=== PATIENT | female | born 1960 | race Caucasian/White ===

== ENCOUNTER 2018-03-02 09:35 | Outpatient (CLI) | payer OTHER | END 2018-03-02 09:36 | disposition home or self-care (01) | LOC: BICULT 09:35 | PROVIDERS: ATTEND Internal Medicine Gastroenterology | DX: Z23 Encounter for immunization (principal); B18.2 Chronic viral hepatitis C; K74.60 Unspecified cirrhosis of liver; K59.09 Other constipation; K76.89 Other specified diseases of liver | CPT/HCPCS: 76705 ==

== ENCOUNTER 2021-12-29 10:59 | Inpatient (IN) | payer OTHER ==
[2021-12-29 11:53] LABS: #Lymphocytes 0.6 thou/uL (1.20-3.40); #Monocytes 0.1 thou/uL (0.11-0.59); #Neutrophils 6.8 thou/uL (1.40-6.50); %Eosinophils 0.1 % (0.0-10.0); %Lymphocytes 8.3 % (21.0-51.0); %Monocytes 0.9 % (0.0-10.0); %Neutrophils 90.7 % (42.0-75.0); Hemoglobin 14.3 g/dL (12.0-16.0); Mean Corpuscular HGB CONC 32.2 g/dL (32.0-36.0); Mean Corpuscular Hemoglobin 30.1 pg (27.0-31.0); Mean Corpuscular Volume 93.7 fL (78.0-98.0); Mean Platelet Volume 8.3 fL (7.4-10.4); Platelet Count 101 thou/uL (130-400); RBC Distribution Width 12.8 % (11.5-14.5); Red Blood Cell (RBC) Count 4.74 mill/uL (4.20-5.40); White Blood Cell (WBC) Count 7.5 thou/uL (4.8-10.8)
[2021-12-29 12:06] LABS: ALT (SGPT) 29 U/L (8-55); AST (SGOT) 42 U/L (5-34); Alkaline Phosphatase 85 U/L (40-110); Anion Gap 12 mmol/L (10-20); BUN (Urea Nitrogen) 20 mg/dL (9.8-20.1); Bilirubin, Total 0.6 mg/dL (0.2-1.2); Calc. Creatinine Clearance 0 mL/min (70-130); Calcium 8.5 mg/dL (7.8-10.44); Carbon Dioxide 25 mmol/L (23-31); Chloride 103 mmol/L (98-107); Glucose 196 mg/dL (80-115); Potassium 3.8 mmol/L (3.5-5.1); Sodium 136 mmol/L (136-145)
[2021-12-29] MEDS ORDERED: Enoxaparin Sodium 60 MG/0.6 ML SYRINGE ONE (12:23)
[2021-12-29 12:28] LABS: CKMB 4.8 ng/mL (0-6.6)
[2021-12-29 14:01] VITALS: BMI 22.6
[2021-12-29 15:19] LABS: Troponin I 0.124 ng/mL (< 0.028)
[2021-12-29] MEDS ORDERED: Senokot S 8.6-50 MG TAB PO PRN (15:55)
[2021-12-29] MEDS ORDERED: Ondansetron PF 4 MG/2 ML Vial IVP PRN (15:55)
[2021-12-29] MEDS ORDERED: Ondansetron ODT 4 MG TAB PO PRN (15:55)
[2021-12-29] MEDS ORDERED: Acetaminophen 325 MG TAB PO PRN (15:55)
[2021-12-29] MEDS ORDERED: Nicotine 14 MG PATCH TD PRN (15:55)
[2021-12-29] MEDS ORDERED: Metoprolol Tartrate 5 MG/5 ML VIAL IVP PRN (16:38)
[2021-12-29 18:11] LABS: INR-International Normal Ratio 1.1; Prothrombin Time 14.8 sec (12.0-14.7)
[2021-12-29 18:12] LABS: PTT 35.2 sec (22.9-36.1)
[2021-12-29 18:27] LABS: Troponin I 0.097 ng/mL (< 0.028)
[2021-12-29] MEDS: Enoxaparin Sodium 60 MG/0.6 ML SYRINGE SC SCH (20:41)
[2021-12-30 04:17] LABS: #Basophils 0.1 thou/uL (0.0-0.2); #Lymphocytes 1.3 thou/uL (1.20-3.40); #Monocytes 0.5 thou/uL (0.11-0.59); #Neutrophils 7.6 thou/uL (1.40-6.50); %Basophils 0.6 % (0.0-1.0); %Eosinophils 0.1 % (0.0-10.0); %Lymphocytes 13.7 % (21.0-51.0); %Monocytes 5.3 % (0.0-10.0); %Neutrophils 80.2 % (42.0-75.0); Hemoglobin 13.5 g/dL (12.0-16.0); Mean Corpuscular HGB CONC 33.9 g/dL (32.0-36.0); Mean Corpuscular Hemoglobin 31.7 pg (27.0-31.0); Mean Corpuscular Volume 93.4 fL (78.0-98.0); Mean Platelet Volume 8.4 fL (7.4-10.4); Platelet Count 112 thou/uL (130-400); RBC Distribution Width 12.9 % (11.5-14.5); Red Blood Cell (RBC) Count 4.27 mill/uL (4.20-5.40); White Blood Cell (WBC) Count 9.5 thou/uL (4.8-10.8)
[2021-12-30 04:41] LABS: ALT (SGPT) 24 U/L (8-55); AST (SGOT) 29 U/L (5-34); Albumin 3.9 g/dL (3.4-4.8); Alkaline Phosphatase 73 U/L (40-110); Anion Gap 13 mmol/L (10-20); BUN (Urea Nitrogen) 30 mg/dL (9.8-20.1); Bilirubin, Total 0.8 mg/dL (0.2-1.2); Calc. Creatinine Clearance 62 mL/min (70-130); Calcium 9.2 mg/dL (7.8-10.44); Carbon Dioxide 24 mmol/L (23-31); Cardiac Risk 3.2 (Less than 4.5); Chloride 105 mmol/L (98-107); Cholesterol 191 mg/dl (< 200 Desired); Globulin 2.8 g/dL (2.4-3.5); Glucose 144 mg/dL (80-115); HDL Cholesterol 60 mg/dL (>60 Neg Risk); LDL Cholesterol, Calculated 110 mg/dL; Potassium 3.9 mmol/L (3.5-5.1); Protein, Total 6.7 g/dL (5.8-8.1); Sodium 138 mmol/L (136-145); Triglycerides 103 mg/dL (Less than 150)
[2021-12-30 05:09] LABS: Hemoglobin A1c 6.8 % (4.0-6.0)
[2021-12-30 08:15] LABS: Troponin I 0.066 ng/mL (< 0.028)
[2021-12-30] MEDS: Enoxaparin Sodium 60 MG/0.6 ML SYRINGE SC SCH (08:59)
[2021-12-30] MEDS ORDERED: Enoxaparin Sodium 60 MG/0.6 ML SYRINGE SC SCH (09:00)
[2021-12-30] MEDS ORDERED: Ketamine 50 MG/ML (10ML VIAL) ONE (10:15)
[2021-12-30] MEDS ORDERED: Esmolol 100 MG/10 ML VIAL ONE (10:23)
[2021-12-30] MEDS ORDERED: PROPOFOL 200 MG/20 ML VIAL ONE (10:23)
[2021-12-30] MEDS ORDERED: Metoprolol Tartrate 5 MG/5 ML VIAL ONE (10:57)
[2021-12-30] MEDS: Sodium Chloride 0.9% 1,000 ML IV SCH (11:36)
[2021-12-30] MEDS: Labetalol HCl 100 MG/20 ML VIAL SLOW IVP PRN (15:21)
[2021-12-30] MEDS: Lisinopril/Hydrochlorothiazide 20 mg/12.5 mg Tablet PO SCH (20:20)
[2021-12-30] MEDS: Pantoprazole 40 MG VIAL IVP SCH (20:22)
[2021-12-30] MEDS ORDERED: LAMOTRIGINE 50 MG PO SCH (21:00)
[2021-12-31] MEDS: Sodium Chloride 0.9% 1,000 ML IV SCH (00:05)
[2021-12-31] MEDS: Labetalol HCl 100 MG/20 ML VIAL SLOW IVP PRN (01:09)
[2021-12-31 04:14] LABS: #Eosinphils 0.1 thou/uL (0.0-0.7); #Lymphocytes 2.3 thou/uL (1.20-3.40); #Monocytes 0.4 thou/uL (0.11-0.59); #Neutrophils 3.8 thou/uL (1.40-6.50); %Basophils 0.5 % (0.0-1.0); %Eosinophils 1.1 % (0.0-10.0); %Lymphocytes 34.9 % (21.0-51.0); %Monocytes 5.5 % (0.0-10.0); Hemoglobin 13.7 g/dL (12.0-16.0); Mean Corpuscular HGB CONC 34.1 g/dL (32.0-36.0); Mean Corpuscular Hemoglobin 31.5 pg (27.0-31.0); Mean Corpuscular Volume 92.4 fL (78.0-98.0); Mean Platelet Volume 8.6 fL (7.4-10.4); Platelet Count 106 thou/uL (130-400); RBC Distribution Width 12.9 % (11.5-14.5); Red Blood Cell (RBC) Count 4.33 mill/uL (4.20-5.40); White Blood Cell (WBC) Count 6.6 thou/uL (4.8-10.8)
[2021-12-31 04:31] LABS: Anion Gap 13 mmol/L (10-20); BUN (Urea Nitrogen) 17 mg/dL (9.8-20.1); Calc. Creatinine Clearance 66 mL/min (70-130); Calcium 9.1 mg/dL (7.8-10.44); Carbon Dioxide 23 mmol/L (23-31); Chloride 107 mmol/L (98-107); Glucose 113 mg/dL (80-115); Potassium 3.5 mmol/L (3.5-5.1); Sodium 139 mmol/L (136-145)
[2021-12-31] MEDS ORDERED: Carvedilol 6.25 MG TAB PO SCH (08:00)
[2021-12-31] MEDS ORDERED: Atenolol 25 MG TAB PO SCH (09:00)
[2021-12-31] MEDS: Lisinopril/Hydrochlorothiazide 20 mg/12.5 mg Tablet PO SCH ×2 (09:23→20:30)
[2021-12-31] MEDS: Bupropion 150 MG XL TAB PO SCH (09:24)
[2021-12-31] MEDS: Pantoprazole 40 MG VIAL IVP SCH ×2 (09:24→20:31)
[2021-12-31] MEDS: Carvedilol 25 MG TAB PO SCH ×2 (16:18→20:30)
[2022-01-01 04:34] LABS: #Eosinphils 0.2 thou/uL (0.0-0.7); #Lymphocytes 1.9 thou/uL (1.20-3.40); #Monocytes 0.5 thou/uL (0.11-0.59); #Neutrophils 4.6 thou/uL (1.40-6.50); %Basophils 0.1 % (0.0-1.0); %Eosinophils 2.9 % (0.0-10.0); %Lymphocytes 26.3 % (21.0-51.0); %Monocytes 6.8 % (0.0-10.0); %Neutrophils 63.9 % (42.0-75.0); Hemoglobin 13.6 g/dL (12.0-16.0); Mean Corpuscular HGB CONC 33.5 g/dL (32.0-36.0); Mean Corpuscular Hemoglobin 30.8 pg (27.0-31.0); Mean Corpuscular Volume 91.9 fL (78.0-98.0); Mean Platelet Volume 8.5 fL (7.4-10.4); Platelet Count 133 thou/uL (130-400); RBC Distribution Width 12.8 % (11.5-14.5); Red Blood Cell (RBC) Count 4.41 mill/uL (4.20-5.40); White Blood Cell (WBC) Count 7.2 thou/uL (4.8-10.8)
[2022-01-01 05:17] LABS: Free T4 (Free Thyroxine) 0.95 ng/dL (0.70-1.48)
[2022-01-01] MEDS: Carvedilol 25 MG TAB PO SCH ×3 (09:46→20:35)
[2022-01-01] MEDS: Lisinopril/Hydrochlorothiazide 20 mg/12.5 mg Tablet PO SCH ×2 (09:46→20:35)
[2022-01-01] MEDS: Pantoprazole 40 MG VIAL IVP SCH ×2 (09:47→20:36)
[2022-01-01] MEDS: Bupropion 150 MG XL TAB PO SCH (09:47)
[2022-01-01] MEDS ORDERED: Digoxin 0.5 MG/2 ML AMP SLOW IVP SCH (17:30)
[2022-01-02 06:33] LABS: Digoxin 0.98 ng/mL (0.8-2.0)
[2022-01-02 06:38] LABS: Anion Gap 14 mmol/L (10-20); BUN (Urea Nitrogen) 13 mg/dL (9.8-20.1); Calc. Creatinine Clearance 62 mL/min (70-130); Calcium 8.9 mg/dL (7.8-10.44); Carbon Dioxide 22 mmol/L (23-31); Chloride 106 mmol/L (98-107); Glucose 129 mg/dL (80-115); Magnesium 1.8 mg/dL (1.6-2.6); Sodium 138 mmol/L (136-145)
[2022-01-02 07:34] LABS: #Eosinphils 0.2 thou/uL (0.0-0.7); #Lymphocytes 1.6 thou/uL (1.20-3.40); #Monocytes 0.4 thou/uL (0.11-0.59); %Basophils 0.6 % (0.0-1.0); %Eosinophils 3.3 % (0.0-10.0); %Lymphocytes 30.2 % (21.0-51.0); %Monocytes 7.2 % (0.0-10.0); %Neutrophils 58.7 % (42.0-75.0); Hemoglobin 14.4 g/dL (12.0-16.0); Mean Corpuscular HGB CONC 33.1 g/dL (32.0-36.0); Mean Corpuscular Hemoglobin 30.4 pg (27.0-31.0); Mean Corpuscular Volume 91.7 fL (78.0-98.0); Mean Platelet Volume 8.4 fL (7.4-10.4); Platelet Count 147 thou/uL (130-400); RBC Distribution Width 12.9 % (11.5-14.5); Red Blood Cell (RBC) Count 4.73 mill/uL (4.20-5.40); White Blood Cell (WBC) Count 5.2 thou/uL (4.8-10.8)
[2022-01-02] MEDS: Lisinopril/Hydrochlorothiazide 20 mg/12.5 mg Tablet PO SCH ×2 (10:13→22:00)
[2022-01-02] MEDS: Carvedilol 25 MG TAB PO SCH ×3 (10:13→22:00)
[2022-01-02] MEDS: Pantoprazole 40 MG VIAL IVP SCH ×2 (10:13→22:00)
[2022-01-02] MEDS: Bupropion 150 MG XL TAB PO SCH (10:14)
[2022-01-02] MEDS: Apixaban 5 MG TAB PO SCH (21:59)
[2022-01-03] MEDS: Lisinopril/Hydrochlorothiazide 20 mg/12.5 mg Tablet PO SCH ×2 (09:01→20:40)
[2022-01-03] MEDS: Carvedilol 25 MG TAB PO SCH ×3 (09:02→20:40)
[2022-01-03] MEDS: Bupropion 150 MG XL TAB PO SCH (09:02)
[2022-01-03] MEDS: Pantoprazole 40 MG VIAL IVP SCH ×2 (09:02→20:40)
[2022-01-03] MEDS: Apixaban 5 MG TAB PO SCH ×2 (09:09→20:40)
[2022-01-03] MEDS ORDERED: Lidocaine 1% (PF) 30 ML VIAL ONE (14:15)
[2022-01-03] MEDS ORDERED: DOPamine 400 MG/D5W 250 ML 0 ML ONE (14:15)
[2022-01-03] MEDS ORDERED: Heparin 10,000 UNITS/ 10 ML VIAL ONE (14:15)
[2022-01-03] MEDS ORDERED: DOPamine 400 MG/D5W 250 ML 250 ML ONE (14:16)
[2022-01-03] MEDS ORDERED: Ketamine 50 MG/ML (10ML VIAL) ONE (15:03)
[2022-01-03] MEDS ORDERED: Dexmedetomidine 200 MCG/2 ML VIAL ONE (15:03)
[2022-01-03] MEDS ORDERED: Propofol 1,000 MG/100 ML VIAL IV ONE (15:03)
[2022-01-03] MEDS ORDERED: PROPOFOL 200 MG/20 ML VIAL ONE (15:30)
[2022-01-03] MEDS ORDERED: PHENYLEPHRINE-NS 100 MCG/ML 10 ML SYRINGE ONE ×2 (15:30→17:02)
[2022-01-03] MEDS ORDERED: Glycopyrrolate 0.2 MG/ML 5 ML SYRINGE ONE (15:30)
[2022-01-03] MEDS ORDERED: Acetaminophen 500 MG TAB PO PRN (18:20)
[2022-01-04] MEDS: Carvedilol 25 MG TAB PO SCH (10:14)
[2022-01-04] MEDS: Lisinopril/Hydrochlorothiazide 20 mg/12.5 mg Tablet PO SCH (10:14)
[2022-01-04] MEDS: Apixaban 5 MG TAB PO SCH (10:14)
[2022-01-04] MEDS: Bupropion 150 MG XL TAB PO SCH (10:14)
[2022-01-04] MEDS: Pantoprazole 40 MG VIAL IVP SCH (10:15)
[2022-01-04 12:09] VITALS: BP 117/66; TEMP 98.7
== END 2022-01-04 13:40 | disposition home or self-care (01) | DRG 273 ==
LOC: ERS 10:59 → 2NO 12:02
PROVIDERS: ADMIT Emergency Medicine; ATTEND Emergency Medicine
PROC: 0W3P8ZZ Control Bleeding in Gastrointestinal Tract, Via Natural or Artificial Opening Endoscopic (ICD-10-PCS; 2021-12-30)
PROC: 02583ZZ Destruction of Conduction Mechanism, Percutaneous Approach (ICD-10-PCS; principal; 2022-01-03)
PROC: B24BZZZ Ultrasonography of Heart with Aorta (ICD-10-PCS; 2022-01-03)
PROC: 4A023FZ Measurement of Cardiac Rhythm, Percutaneous Approach (ICD-10-PCS; 2022-01-03)
PROC: 4A0234Z Measurement of Cardiac Electrical Activity, Percutaneous Approach (ICD-10-PCS; 2022-01-03)
PROC: 02K83ZZ Map Conduction Mechanism, Percutaneous Approach (ICD-10-PCS; 2022-01-03)
DX: I48.3 Typical atrial flutter (principal); K29.61 Other gastritis with bleeding; I50.43 Acute on chronic combined systolic (congestive) and diastolic (congestive) heart failure; K76.6 Portal hypertension; K31.89 Other diseases of stomach and duodenum; K44.9 Diaphragmatic hernia without obstruction or gangrene; J44.9 Chronic obstructive pulmonary disease, unspecified; K74.60 Unspecified cirrhosis of liver; F43.10 Post-traumatic stress disorder, unspecified; F41.9 Anxiety disorder, unspecified; F32.A Depression, unspecified; E11.65 Type 2 diabetes mellitus with hyperglycemia; Z60.2 Problems related to living alone; B18.2 Chronic viral hepatitis C; F17.210 Nicotine dependence, cigarettes, uncomplicated; D69.6 Thrombocytopenia, unspecified; F12.10 Cannabis abuse, uncomplicated; F14.10 Cocaine abuse, uncomplicated; I42.0 Dilated cardiomyopathy; I11.0 Hypertensive heart disease with heart failure; I08.3 Combined rheumatic disorders of mitral, aortic and tricuspid valves; Z79.899 Other long term (current) drug therapy; Z82.49 Family history of ischemic heart disease and other diseases of the circulatory system; Z88.5 Allergy status to narcotic agent; Z71.6 Tobacco abuse counseling
CPT/HCPCS: 36415; 71045; 80048; 80053; 80061; 80162; 82553; 83036; 83735; 83880; 84439; 84443; 84484; 85025; 85610; 85730; 93005; 93010; 93306; 93312; 93613; 93621; 93653; 96372; C1730; C1732; C1760; C9113; J1160; J1265; J1644; J1650; J2001; J2704; J7050